=== PATIENT | female | born 1975 | race Caucasian/White ===

== ENCOUNTER 2023-02-28 05:40 | Day surgery (SDC) | payer OTHER, BC ==
[2023-02-20 11:22] VITALS: BP 115/77
[~2023-02-28] VITALS: Ht 160 cm; Wt 65.9 kg
--- NOTE | ~2023-02-28 | OR ---
[facility] [address], [place] [address] Draft DATE OF OPERATION: 02/28/2023 SURGEON: Jose Pires MD PREOPERATIVE DIAGNOSES: Deviated nasal septum, turbinate hypertrophy. POSTOPERATIVE DIAGNOSIS: Deviated nasal septum, turbinate hypertrophy. PROCEDURES: 1. Nasal septoplasty, 51669. 2. Bilateral submucous resection of inferior turbinates, 85277-52. INDICATIONS: A 47-year-old female who had a lifelong history of allergy, which has made her turbinates hypertrophy which is now refractory to the usual medical treatments for nasal congestion and obstruction. Examination showed that she did have a spur on the right side of the nasal septum with a large inferior turbinates on the right side, which was bigger than the one on the left, but together were causing significant nasal obstruction. Because of the obvious anatomic of obstruction along with medical failure to treat her nasal obstruction, the above procedures were therefore indicated. The patient was placed in the supine position, had an orotracheal intubation, was placed under general anesthesia. 3 mL of 1% lidocaine 1:100,000 epinephrine were injected into the spur on the inferior portion of the right side and in both anterior portions of the inferior turbinates. An incision was made on the septum near the floor of the junction with the floor lifting up the mucoperiosteal mucoperichondrium over the spur, which was then cut with an osteotome and a mallet. This obstructing bone of cartilage was then removed, making that flush with the rest of the surface of the septum. Stab incisions made in the anterior aspects of both inferior turbinates. Then with the caudal dissection tool, the mucoperiosteal was lifted up in a circumferential manner exposing the turbinate bone anteriorly. This was grasped with Franci forceps and the bone removed. As the dissection proceeded posteriorly in that same dissection plane, the pieces of bone were fractured into little pieces and removed from the airway. The right side had a greater degree of obstruction and the turbinate bone was larger on that side. Removing enough bone from the dissected pockets both right and left. This increased the nasal airway without removing any of the turbinates, mucosa. The patient clotted well and required no packing and she was awakened, extubated and sent to recovery in good condition. Estimated blood loss was probably 15 mL. PATIENT NAME: TERRA NEWMAN OPERATIVE REPORT DATE OF : 71 REPORT #: [id number] PHYSICIAN: JOSE PIRES MD PCP: LUZ ELENA PRATER PAC REPORT IS CONFIDENTIAL AND NOT TO BE RELEASED WITHOUT AUTHORIZATION [facility] [address], [place] [address] Draft MD JONATAN Bhagat/MODL /[id number] Copies: ~ PATIENT NAME: TERRA NEWMAN OPERATIVE REPORT DATE OF : 71 REPORT #: [id number] PHYSICIAN: JOSE PIRES MD PCP: LUZ ELENA PRATER PAC REPORT IS CONFIDENTIAL AND NOT TO BE RELEASED WITHOUT AUTHORIZATION
[~2023-02-28 05:40] MED LIST: CLARITIN10 MG PO; IBUPROFEN400 MG PO; PERCOCET 7.5-31 EACH PO
[2023-02-28 06:02] VITALS: BP 104/63
[2023-02-28 09:26] VITALS: BP 115/62
[2023-02-28 10:23] VITALS: BP 100/63
== END 2023-02-28 10:25 | disposition home or self-care (01) ==
LOC: DS 05:40
PROVIDERS: ATTEND Otolaryngology
PROC: 09TL0ZZ Resection of Nasal Turbinate, Open Approach (ICD-10-PCS; 2023-02-28)
PROC: 09BM0ZZ Excision of Nasal Septum, Open Approach (ICD-10-PCS; principal; 2023-02-28 07:30)
DX: J34.2 Deviated nasal septum (principal); J34.3 Hypertrophy of nasal turbinates; Z88.2 Allergy status to sulfonamides; Z79.899 Other long term (current) drug therapy
CPT/HCPCS: 00160; A9270; J0131; J1100; J2250; J2310; J2405; J2704; J3010; J3490; J7121